=== PATIENT | female | born 1975 | race Caucasian/White ===

== ENCOUNTER 2023-02-18 19:01 | Emergency (ER) | payer BC, OTHER ==
[~2023-02-18] VITALS: Ht 167.6 cm; Wt 63.5 kg
[2023-02-18 19:27] VITALS: BP_SYST 126
--- NOTE | 2023-02-18 19:34 | NUR ---
PT WALKED IN TO THE ER FR HOME C/O MID LOWER 05/19 ABD PAIN SINCE YESTERDAY AT 4PM. DENIES N/V. HAD DIARRHEA X 2 TODAY. LMP: 01/18/23 NKDA. NO PMH. SURGICAL HX: TONSILLECTOMY @ 5YRS OLD, BREAST AUGMENTATION/IMPLANTS
[2023-02-18 19:59] LABS: BILIRUBIN,URINE NEGATIVE (NEGATIVE); BLOOD, URINE 2+ (NEGATIVE); COLOR,URINE YELLOW (YELLOW); GLUCOSE,URINE NEGATIVE (NEGATIVE); KETONES,URINE 1+ (NEGATIVE); LEUKOCYTE ESTERASE ,URINE NEGATIVE (NEGATIVE); NITRITE, URINE NEGATIVE (NEGATIVE); PH,URINE 5.5 (5.0-8.0); PROTEIN URINE NEGATIVE (NEGATIVE); UROBILINOGEN,URINE 0.2 (0.2-1.0)
--- NOTE | 2023-02-18 20:00 | NUR ---
Patient to ER bed 8 to gown for evaluation. Side rails up. Report given to jamilah DAY.
[2023-02-18 20:01] LABS: CLARITY/URINE CLOUDY (CLEAR)
--- NOTE | 2023-02-18 20:01 | NUR ---
ER at bedside examining patient.
--- NOTE | 2023-02-18 20:02 | NUR ---
Natasha hines in EDM - 02/18/23 at 2002 by FLETCHER DEEP Merlos at bedside examining patient.
--- NOTE | 2023-02-18 20:02 | NUR ---
Natasha hines in EDM - 02/18/23 at 2001 by FLETCHER Patient to ER bed 8 to osoriolissa for evaluation. Side rails up. Report given to jamilah DAY.
--- NOTE | 2023-02-18 20:02 | NUR ---
ER at bedside examining patient.
--- NOTE | 2023-02-18 20:10 | NUR ---
PT BIB SELF FROM HOME, AMBULATED TO BED 8. PT A&Ox4, ABLE T MAKE NEEDS KNOWN. PT C/O ABD PAIN WITHIN THE PAST 24 HOURS. PT RATES PAIN 3/10 AND DESCRIBES PAIN CRAMPING. PT RATES PAIN 9/10 WHEN AMBULATING. PT STATES ABD TENDER TO TOUCH. PT DENIES N/V, FEVER/CHILLS. PT DENIES SOB AND CHEST PAIN. SAFETY PRECAUTION IN PLACE.
[2023-02-18 20:31] LABS: BACTERIA,URINE FEW /HPF (None Seen); WBC,URINE 0-3 /HPF (0-3)
[2023-02-18 21:09] LABS: BASOPHILS % (AUTO) 0.4 % (0.0-2.0); EOSINOPHILS # (AUTO) 0.2 K/uL (0.0-0.4); EOSINOPHILS % (AUTO) 2.4 % (0.0-4.0); HEMATOCRIT 39.6 % (36-48); HEMOGLOBIN 13.5 g/dL (12.0-16.0); LYMPHOCYTES # (AUTO) 1.7 K/uL (1.0-5.5); LYMPHOCYTES % (AUTO) 21.9 % (20.5-51.5); MEAN CORPUSCULAR HEMOGLOBIN 33 pg (27-31); MEAN CORPUSCULAR HGB CONC 34 % (32-36); MEAN CORPUSCULAR VOLUME 96 fL (79.0-98.0); MONOCYTES # (AUTO) 0.9 K/uL (0.0-1.0); MONOCYTES % (AUTO) 11.5 % (1.7-9.3); NEUTROPHILS % (AUTO) 63.8 % (40.0-70.0); PLATELET COUNT (AUTO) 269 K/uL (130-430); RED BLOOD CELL COUNT(AUTO) 4.13 MIL/uL (4.2-6.2); WHITE BLOOD COUNT (AUTO) 7.9 K/uL (4.8-10.8)
[2023-02-18 21:32] LABS: ALBUMIN 3.4 g/dL (3.4-4.8); CALCIUM 8.5 mg/dL (8.4-11.0); CREATININE 0.88 mg/dL (0.55-1.30); TOTAL BILIRUBIN 0.4 mg/dL (0.0-1.0)
[2023-02-18] MEDS ORDERED: NITR-80 PO (21:37)
[2023-02-18] MEDS ORDERED: PHEN-890 PO (21:37)
--- NOTE | 2023-02-18 21:43 | NUR ---
Patient given written and verbal discharge instructions and verbalizes understanding. ER DR ROBERTS discussed with patient the results and treatment provided. Patient in stable condition. ID arm band removed. Rx of MACRODANTIN, PYRIDIUM given. Patient educated on pain management and to follow up with PMD. Pain Scale 0/10 Opportunity for questions provided and answered. Medication side effect fact sheet provided.
[2023-02-18 21:51] VITALS: BP_SYST 117
--- NOTE | 2023-02-18 22:08 | NUR ---
Note undone in EDM - 02/18/23 at 2213 by MURTAZAURAL PT BIB SELF FROM HOME, AMBULATED TO BED 8. PT A&Ox4, ABLE T MAKE NEEDS KNOWN. PT C/O ABD PAIN WITHIN THE PAST 24 HOURS. PT RATES PAIN 3/10 AND DESCRIBES PAIN CRAMPING. PT RATES PAIN 9/10 WHEN AMBULATING. PT STATES ABD TENDER TO TOUCH. PT DENIES N/V, FEVER/CHILLS. PT DENIES SOB AND CHEST PAIN. SAFETY PRECAUTION IN PLACE.
== END 2023-02-18 21:42 | disposition home or self-care (01) ==
LOC: SED 19:01
DX: N39.0 Urinary tract infection, site not specified (principal); R10.30 Lower abdominal pain, unspecified; Z79.899 Other long term (current) drug therapy
CPT/HCPCS: 36415; 76376; 80053; 81000; 81025; 83605; 85025; 87040; 99284